=== PATIENT | female | born 1990 | race Caucasian/White ===

== ENCOUNTER 2017-07-31 04:03 | Inpatient (IN) | payer OTHER ==
[~2017-07-31] VITALS: Ht 160 cm; Wt 77.1 kg
[2017-07-31] VITALS (11 sets, daily range): BP systolic 98–124; BP diastolic 53–67
[~2017-07-31 04:03] MED LIST: AMBIEN10 MG PO; MOTRIN800 MG PO; PERCOCET 5/31 TABLET PO; PRENATAL TABLE1 EAC3 PO; PREVACID15 MG PO; TYLENOL EXTRA500 MG PO
[2017-07-31] MEDS ORDERED: NEXIUM40 MG PO (04:25)
[2017-07-31 05:50] LABS: BASOPHIL (%) 0.3 % (0-1); EOSINOPHIL (%) 0.6 % (0-5); EOSINOPHIL COUNT 0.1 K/uL (0-0.3); HEMATOCRIT 38.8 % (36.0-46.0); HEMOGLOBIN 13.3 G/DL (11.9-15.5); IMMATURE GRANULOCYTE (%) 0.9 % (0.0-0.7); LYMPHOCYTE (%) 20.1 % (15-42); LYMPHOCYTE COUNT 2.1 K/uL (1.0-2.8); MCH 29.8 PG (29.0-34.0); MCHC 34.3 G/DL (30.0-36.0); MONOCYTE (%) 7.2 % (3-12); MONOCYTE COUNT 0.7 K/uL (0-0.8); NEUTROPHIL (%) 70.9 % (45-76); NEUTROPHIL COUNT 7.2 K/uL (1.8-6.4); RBC DIS.WIDTH-CV 12.8 % (11.8-14.6); RBC DIS.WIDTH-SD 40.6 % (39-53); RED BLOOD COUNT 4.46 M/uL (3.80-5.20); WHITE BLOOD COUNT 10.2 K/uL (4.1-10.2)
[2017-07-31] MEDS ORDERED: IBUPROFEN800 MG PO (06:44)
[2017-07-31 07:18] LABS: ANISOCYTOSIS 1+; PLAT.SUFFICIENCY DECREASED; PLATELET COUNT 119 K/uL (156-360)
[2017-08-01 07:26] VITALS: BP 110/57
[2017-08-01 15:33] VITALS: BP 110/65
[2017-08-01 23:00] VITALS: BP 102/67
[2017-08-02 07:05] VITALS: BP 100/60
== END 2017-08-02 11:42 | disposition home or self-care (01) | DRG 775 ==
LOC: LDRP-OP 04:03 → 2WEST 04:04 → LDRP-OP 08-30 08:39
PROVIDERS: Nurse Practitioner
DX: O99.824 Streptococcus B carrier state complicating childbirth (principal); Z37.0 Single live birth; Z3A.40 40 weeks gestation of pregnancy; Z87.442 Personal history of urinary calculi; K21.9 Gastro-esophageal reflux disease without esophagitis; O99.62 Diseases of the digestive system complicating childbirth
CPT/HCPCS: 85025; J0595; J2540; J7120